=== PATIENT | male | born 1950 | race Caucasian/White ===

== ENCOUNTER 2016-09-21 09:05 | Inpatient (IN) | payer MEDICARE, BC ==
[2016-09-13 20:14] LABS: HEMOGLOBIN 14.7 g/dL (13.6-17.8)
[2016-09-13 20:22] LABS: BUN (BLOOD UREA NITROGEN) 20 MG/DL (6-23); CALCIUM, SERUM 8.8 MG/DL (8.5-10.4); CHLORIDE, SERUM 101 MMOL/L (96-112); CO2 (CARBON DIOXIDE) 28 MMOL/L (24-34); CREATININE 1.08 MG/DL (0.70-1.30); GFR AFRICAN AMERICAN 81 ML/MIN (>=60); GFR NON AFRICAN AMERICAN 70 ML/MIN (>=60); GLUCOSE, SERUM 158 MG/DL (60-99); POTASSIUM, SERUM 4.3 MMOL/L (3.5-5.3); SODIUM, SERUM 140 MMOL/L (135-148)
--- NOTE | ~2016-09-21 | DS ---
Discharge Summary [facility] [place] [address] [place]. [address] NAME: MANISH BOYER : 46 STATUS : DIS IN PAT#: [id number] AGE: 66 ADM/REG DATE : 09/21/16 MR#: [id number] REPORT SERV DATE: 10/01/16 DICTATED BY: AMADOR ABDALLA II DATE: 10/01/16 REPORT STATUS : Draft TRANSCRIBED BY: CY DATE: 10/01/16 Data Collection from hospitalization DISCHARGE DIAGNOSES: 1. Thoracic severe spinal pain. 2. History of cervicothoracic fusion and also T12 to the pelvis fusion. 3. 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 T12-L1, nonunion. 5. Diabetes. 6. Hypertension. 7. Anxiety and depression. 8. Cataracts. 9. Osteoarthritis. 10.Scoliosis deformity. CONSULTATIONS: None. PROCEDURES PERFORMED: T5-6, T6-7, T8-9, T9-T10, T11-T12, T12-L1 posterior arthrodesis. T5 to T12 segmental instrumentation (8 segments). Use of local autograft, allograft substitute, and bone morphogenetic protein. Use of stereotactic guidance, 09/21/2016. PATHOLOGY: Bone, soft tissue, and surgical hardware of thoracic spine-bone skeletal muscle and fibrocartilage with no significant microscopic abnormality. Surgical hardware is not submitted. DISCHARGE MEDICATION: Xanax 1 mg twice a day as needed, aspirin 81 mg daily, vitamin B12 1000 mcg daily, Amaryl 2 mg daily, hydrochlorothiazide 25 mg daily, Dilaudid 4-8 mg every four to six hours as needed, Prinivil 10 mg every evening, Lopressor 25 mg twice a day, OxyContin 20 mg every 8 hours, Actos 30 mg every morning, Zocor 40 mg every evening. CONDITION AT DISCHARGE: Stable. DISPOSITION: The patient was discharged home on an 1800-calorie diabetic diet with activities as instructed. He would follow up with me, 10/14/2016. HOSPITAL COURSE: This is a 66-year-old man, who complained of cervical-related symptoms. These symptoms were located in the neck, mid back, and low back with radiation into the bilateral lower extremities with associated numbness in his hands. He rates his pain as 4 on a scale of 0-10. The patient has a history of cervicothoracic fusion and also T12 to the pelvis fusion. He has kyphotic deformity with a component of Scheuermann's. He also has T12-L1 nonunion. Treatment options were discussed and it was elected to proceed with surgical intervention. He was admitted to the hospital at this time for further evaluation and treatment. Upon admission, he was taken to the operating room, where he underwent the above-mentioned procedure. He tolerated this well and there were no complications. On postop day #1, he was stable. He was neurologically intact. He was evaluated by Physical Therapy. He underwent diabetes education. Over the next couple of days, he continued to progress. Discharge Summary [address] [address] NAME: MANISH BOYER : 46 STATUS : DIS IN [facility]#: [id number] AGE: 66 ADM/REG DATE : 09/21/16 MR#: [id number] REPORT SERV DATE: 10/01/16 DICTATED BY: AMADOR ABDALLA II DATE: 10/01/16 REPORT STATUS : Draft TRANSCRIBED BY: CY DATE: 10/01/16 Discharge planning was performed. On 09/24/2016, he was eager to go home. He was doing well postoperatively. Discharge instructions were given. Due to his improved and stable condition, he was discharged home with the above-stated instructions. Information collected by: Gaby Flores I submit the above information as my discharge summary. CARLOS/CY mAador Abdalla II, M.D. / [id number] CC: Adam Lima II, KATRINA V.
--- NOTE | ~2016-09-21 | OP ---
Record Of Operation [facility] [address] [place]. [address] NAME: MANISH BOYER : 46 STATUS : ADM IN PAT#: [id number] AGE: 66 ADM/REG DATE : 09/21/16 MR#: [id number] REPORT SERV DATE: 09/22/16 DICTATED BY: AMADOR ABDALLA II DATE: 09/22/16 REPORT STATUS : Draft TRANSCRIBED BY: MODL DATE: 09/22/16 DATE OF PROCEDURE: 09/21/2016 PREOPERATIVE DIAGNOSES: 1. Thoracic severe spinal pain. 2. History of cervicothoracic fusion and also T12 to the pelvis fusion. 3. 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 T12-L1 non union. POSTOPERATIVE DIAGNOSES: 1. Thoracic severe spinal pain. 2. History of cervicothoracic fusion and also T12 to the pelvis fusion. 3. 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 T12-L1 non union. PROCEDURES: 1. T5-6, T6-7, T7-8, T8-9, T9-T10, T11-T12, T12-L1 posterior arthrodesis. 2. T5 to T12 segmental instrumentation (8 segments). 3. Use of local autograft, allograft substitute, and bone morphogenic protein. 4. Use of stereotactic guidance. SURGEON: Amador Abdalla M.D. FLUIDS REPLACED: 2 L Lactated Ringer's. ESTIMATED BLOOD LOSS: 300 mL. PREOPERATIVE HISTORY: This is a very friendly 66-year-old gentleman, who came to me for a very complicated issue. He reports severe thoracic spine pain. He reports having done reasonably well with the other surgeries, but he has had a cervicothoracic fusion. He has also had a T12 and pelvis fusion. Initially I did not feel confident we would likely help him with surgery and encouraged him to continue nonoperative measures. However, he kept returning pleading with me to consider surgery if I thought it would help. On his imaging he did have what appeared to be an area of instability and significant degenerative collapse with some kyphosis associated with it. This was noted on the CT scan. I told him was likely his pain generator, but it was difficult to pinpoint. He also has some component of Scheuermann's Kyphosis. He is also a larger gentleman, but he was absolutely miserable with his quality of life. He seemed very legitimate and I felt compelled to try and help him. We discussed however there is always a chance of failure with the surgery despite our best intentions. We also discussed the chance of infection which was increased because of his diabetes and also his size. We also discussed hardware failure and a small chance of stroke and . DESCRIPTION OF PROCEDURE: After informed consent was obtained, the patient was brought to the operating room at his request and general anesthesia achieved. He was placed in a prone position. The back was prepped and draped in a sterile fashion. The patient was placed in Record Of Operation [address] [place]. [address] NAME: MANISH BOYER : 46 STATUS : ADM IN [facility]#: [id number] AGE: 66 ADM/REG DATE : 09/21/16 MR#: [id number] REPORT SERV DATE: 09/22/16 DICTATED BY: AMADOR ABDALLA II DATE: 09/22/16 REPORT STATUS : Draft TRANSCRIBED BY: CY DATE: 09/22/16 the prone position, and after the back was prepped and draped in a sterile fashion a large midline incision was made from approximately T4 down to L1. The previous hardware was identified at T5 and T12. Dissection was carried out and we identified the facet capsules and the transverse processes at these multiple levels. At this point, we then placed hardware from T5 down to T12. At this point, we then were able to use end to end connectors to attach to the previous hardware. The L1-L2 area did appear to have some loosening on x-ray. At this point, we then attached the end-to-end connectors to the tips of the rods which were exposed well enough above the screws to allow adequate fixation. We also again then added a onofre connector on the right side. This is at T5. At this point, we then performed the repeat CT scan and confirmed acceptable placement of the implants. One screw appear slightly medial on the right which we then removed. At this point, we were able to attach the end-to-end connectors successfully to the new onofre and essentially connect above to the old hardware below. At that this point, we then irrigated the area significantly. 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 At this point, the decortication was performed at T5, T6, T7, T8, T9, T10, T11, T12, and L1. 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 Bone graft was added there and overall this bone graft included local autograft, allograft substitute, and bone morphogenic protein at these multiple levels. A deep drain was placed followed by standard closure. The patient was extubated and transferred to PACU in stable condition. JJ/MODL ador Abdalla II, M.D. / [id number] CC: Adam Lima II, MD
[~2016-09-21 09:05] MED LIST: ACET500CAP PO; ACTOS30 PO; ALLEGRA-D24 HOUR PO; AMARYL2 PO; ASAB PO; CENTRUM PO; CYANO1000T PO; DUETACT PO; DULCOLAX STOOL100 MG PO; FARXIGA5 PO; FLOMAX4 PO; HYDROCHLOROT25 MG PO; LOP25 PO; LORTAB 5 PO; METHOC750B PO; MIRALAXPKT PO; MOBIC7.5 PO; MSCONT15 PO; MSCONTIN PO; MULTIPLE VIT PO; NORCO1 TAB PO; OXYCON10 PO; PERCOCET1 TA4 PO; PRIN10 PO; PROSCAR5 PO; REST15 PO; ROXICODONE15 MG PO; SAW PALMETTO; SAW PALMETTO PO; ULTRAM50 PO; VOLTXR100 PO; X5 PO; XANAX1 MG PO; ZANAFLEX 4 MG TA4 MG PO; ZOCOR40 PO
[2016-09-24] MEDS ORDERED: DIL4TAB PO (09:11)
== END 2016-09-24 12:54 | disposition home or self-care (01) | DRG 458 ==
LOC: SDC/OF 09:05 → 3SO 21:46
PROVIDERS: Orthopaedic Surgery
PROC: 0RGA071 Fusion of Thoracolumbar Vertebral Joint with Autologous Tissue Substitute, Posterior Approach, Posterior Column, Open Approach (ICD-10-PCS; 2016-09-21)
PROC: 4A11X4G Monitoring of Peripheral Nervous Electrical Activity, Intraoperative, External Approach (ICD-10-PCS; 2016-09-21)
PROC: 0RG7071 Fusion of 2 to 7 Thoracic Vertebral Joints with Autologous Tissue Substitute, Posterior Approach, Posterior Column, Open Approach (ICD-10-PCS; principal; 2016-09-21 10:30)
DX: M40.294 Other kyphosis, thoracic region (principal); I10 Essential (primary) hypertension; E11.9 Type 2 diabetes mellitus without complications
CPT/HCPCS: 71010; 80048; 82962; 85014; 85018; 87641; 88300; 88304; 88311; 93005; 94002; 97116-GP; 97162-GP; A9270-GY; C1713; C1751; G8978-CK-GP; G8979-CJ-GP; J0690; J1170; J2250; J2370; J2710; J3010; J3370